=== PATIENT | female | born 1980 | race African-American/Black ===

== ENCOUNTER 2017-11-19 11:42 | Day surgery (SDC) | payer BC ==
[~2017-11-19 11:42] MED LIST: ACETAMINOPHEN 1000 MG/100 ML IVPB; LIDOCAINE 2% (SDV) 5 ML INJ
[2017-11-19] MEDS ORDERED: SOD CHLORIDE 0.9% 1,000 ML IV (13:00)
[2017-11-19] MEDS ORDERED: PROPOFOL 100 ML (14:22)
[2017-11-19] MEDS ORDERED: ROCURONIUM 50 MG INJ ×2 (14:26→16:29)
[2017-11-19] MEDS ORDERED: DIPHENHYDRAMINE 50 MG INJ IV (14:30)
[2017-11-19] MEDS ORDERED: METOCLOPRAMIDE 10 MG INJ IV (14:30)
[2017-11-19] MEDS ORDERED: ONDANSETRON 4 MG INJ IV ×2 (14:30→15:00)
[2017-11-19] MEDS ORDERED: LABETALOL HCL 20MG INJ IV (14:30)
[2017-11-19] MEDS ORDERED: EPHEDrine SULFATE 50 MG/5 ML SYG IV (14:30)
[2017-11-19] MEDS ORDERED: HYDROmorphONE (0.2 MG/ML) 10ML SYG IV ×2 (14:30)
[2017-11-19] MEDS ORDERED: MEPERIDINE 25 MG INJ IV (14:30)
[2017-11-19] MEDS ORDERED: OXYCODONE/ACETAMINOPHEN (5/325) TAB PO ×2 (14:30→15:00)
[2017-11-19] MEDS ORDERED: hydrALAzine 20 MG INJ IV (14:30)
[2017-11-19] MEDS ORDERED: MIDAZOLAM 1 MG/ML 2 ML INJ IV (14:30)
[2017-11-19] MEDS ORDERED: KETOROLAC 30 MG INJ IV (14:30)
[2017-11-19] MEDS ORDERED: FENTAnyl 50 MCG/ML VIAL IV ×3 (14:30)
[2017-11-19] MEDS ORDERED: ALBUTEROL 0.083% (NEB) 2.5 MG/3 ML AMP HHN (14:30)
[2017-11-19] MEDS ORDERED: MIDAZOLAM 1 MG/ML 2 ML INJ (14:34)
[2017-11-19] MEDS: POLYMYXIN/BACITRACIN 1L IRRIG (14:52)
[2017-11-19] MEDS: GENTAMICIN 80 MG INJ (14:52)
[2017-11-19] MEDS ORDERED: DEXAMETHASONE 4 MG/ML 1 ML INJ (14:57)
[2017-11-19] MEDS ORDERED: morphine 2 MG INJ IV (15:00)
[2017-11-19] MEDS ORDERED: ONDANSETRON 4 MG INJ (16:03)
[2017-11-19] MEDS ORDERED: NEOSTIGMINE 3 MG/3 ML SYRINGE (16:29)
[2017-11-19] MEDS ORDERED: GLYCOPYRROLATE 0.4 MG INJ (16:29)
[2017-11-19] MEDS ORDERED: CEFAZOLIN 1 GM INJ (16:29)
[2017-11-19] MEDS: EPINEPHrine 0.1 MG/ML SYG (16:35)
[2017-11-19] MEDS: BUPIVACAINE LIPOSOME/PF 266 MG/20 ML VIAL INFIL (16:35)
[2017-11-19] MEDS: HYDROmorphONE (0.2 MG/ML) 10ML SYG IV (16:58)
[2017-11-19] MEDS: OXYCODONE/ACETAMINOPHEN (5/325) TAB PO (18:01)
== END 2017-11-19 18:19 | disposition home or self-care (01) ==
LOC: SDS 11:42
DX: Z42.1 Encounter for breast reconstruction following mastectomy (principal); Z85.3 Personal history of malignant neoplasm of breast
CPT/HCPCS: 11970; 84703

== ENCOUNTER 2018-05-20 08:07 | Day surgery (SDC) | payer BC ==
[2018-05-20] MEDS ORDERED: LACTATED RINGER'S 1,000 ML IV (08:30)
[2018-05-20 08:53] LABS: ADD MAN DIFF? NO
[2018-05-20 08:58] LABS: WHITE BLOOD COUNT 4.4 10^3/ul (4.8-10.8)
[2018-05-20 08:58] LABS: BASOPHILS % 0.2 % (0.0-2.0); EOSINOPHILS % 0.2 % (0.0-7.0); HEMATOCRIT 42.3 % (37.0-47.0); HEMOGLOBIN 13.5 g/dl (12.0-16.0); LYMPHOCYTES # 1.8 10^3/ul (0.8-2.9); LYMPHOCYTES % 41.3 % (15.0-51.0); MEAN CORPUSCULAR HEMOGLOBIN 28.8 pg (29.0-33.0); MEAN CORPUSCULAR HGB CONC 31.9 g/dl (32.0-37.0); MEAN CORPUSCULAR VOLUME 90.2 fl (82.0-101.0); MEAN PLATELET VOLUME 9.2 fl (7.4-10.4); MONOCYTE # 0.4 10^3/ul (0.3-0.9); MONOCYTES % 9.6 % (0.0-11.0); NEUTROPHIL # 2.1 10^3/ul (1.6-7.5); NEUTROPHILS % 48.5 % (39.0-77.0); PLATELET COUNT 233 10^3/UL (140-415); RED BLOOD COUNT 4.69 10^6/ul (4.20-5.40); RED CELL DISTRIBUTION WIDTH 13.2 % (11.5-14.5)
[2018-05-20 09:21] LABS: ANION GAP 11 (8-16); BLOOD UREA NITROGEN 12 mg/dl (7-20); CALCIUM 8.6 mg/dl (8.4-10.2); CARBON DIOXIDE 24 mmol/L (21-31); CHLORIDE 111 mmol/L (97-110); CREATININE 0.57 mg/dl (0.44-1.00); GLUCOSE 99 mg/dl (70-220); POTASSIUM 4.6 mmol/L (3.5-5.1); SODIUM 141 mmol/L (135-144)
[2018-05-20] MEDS ORDERED: GENTAMICIN 80 MG INJ (09:30)
[2018-05-20] MEDS ORDERED: POLYMYXIN/BACITRACIN 1L IRRIG (09:30)
[2018-05-20] MEDS ORDERED: FENTAnyl 50 MCG/ML VIAL ×3 (09:40→11:43)
[2018-05-20] MEDS ORDERED: MIDAZOLAM 1 MG/ML 2 ML INJ (09:40)
[2018-05-20] MEDS: EPINEPHrine 1 MG INJ (09:59)
[2018-05-20] MEDS: BUPIVACAINE LIPOSOME/PF 266 MG/20 ML VIAL INFIL (09:59)
[2018-05-20] MEDS ORDERED: morphine 2 MG INJ IV (10:00)
[2018-05-20] MEDS ORDERED: MEPERIDINE 25 MG INJ IV (10:00)
[2018-05-20] MEDS ORDERED: ONDANSETRON 4 MG INJ IV (10:00)
[2018-05-20] MEDS ORDERED: HYDROCODONE/APAP (5/325) TAB PO (10:00)
[2018-05-20] MEDS ORDERED: HYDROmorphONE 1 MG/5 ML IV SYRINGE IV (10:00)
[2018-05-20] MEDS ORDERED: ACETAMINOPHEN 325 MG TAB PO (10:00)
[2018-05-20] MEDS ORDERED: DIPHENHYDRAMINE 50 MG INJ IV (10:00)
[2018-05-20] MEDS ORDERED: LIDOCAINE 2% (SDV) 5 ML INJ (11:04)
[2018-05-20] MEDS ORDERED: CEFAZOLIN 1 GM INJ (11:04)
[2018-05-20] MEDS ORDERED: PROPOFOL 20 ML (11:04)
[2018-05-20] MEDS ORDERED: ONDANSETRON 4 MG INJ ×2 (11:05→11:43)
[2018-05-20] MEDS: FENTAnyl 50 MCG/ML VIAL IV (11:59)
[2018-05-20] MEDS: ONDANSETRON 4 MG INJ IV (12:00)
[2018-05-20] MEDS: HYDROmorphONE 1 MG/5 ML IV SYRINGE IV (12:02)
== END 2018-05-20 12:58 | disposition home or self-care (01) ==
LOC: SDS 08:07
DX: Z85.3 Personal history of malignant neoplasm of breast (principal)
CPT/HCPCS: 19380; 80048; 84703; 85025